=== PATIENT | female | born 1960 | race Caucasian/White ===

== ENCOUNTER 2017-01-29 19:51 | Emergency (ER) | payer OTHER ==
[~2017-01-29] VITALS: Ht 160 cm; Wt 78.7 kg
[~2017-01-29 19:51] MED LIST: BACTRIM,SEPT1 TABLET PO; CIPRO500 MG PO; DOCUSATE SODIU100 MG PO; FLAGYL500 MG PO; GABAPENTIN300 MG PO; HYDROCHLOROTHIA25 MG PO; LISINOPRIL-HCT1 EACH PO; MOTRIN600 MG PO; PHENERGAN25 MG PR; PRILOSEC20 MG PO; RANITIDINE HCL150 MG PO; SENNA PLUS TAB1 EACH PO; ULTRACET1 TABLET PO; VITAMIN D35000 UNIT PO; WELLBUTRIN XL300 MG PO; ZESTRIL,PRINIVI10 MG PO; ZOFRAN ODT4 MG PO
[2017-01-29 20:27] LABS: BASOPHIL COUNT 0.1 K/uL (0-0.1); EOSINOPHIL (%) 0.3 % (0-5); EOSINOPHIL COUNT 0.1 K/uL (0-0.3); HEMATOCRIT 48.5 % (36.0-46.0); IMMATURE GRANULOCYTE (%) 0.7 % (0.0-0.7); IMMATURE GRANULOCYTE COUNT 0.2 K/uL; INSTRUMENT ABS NEUTROPHIL CT 12.5 K/uL; LYMPHOCYTE COUNT 6.1 K/uL (1.0-2.8); MCH 28.7 PG (29.0-34.0); MCHC 32.6 G/DL (30.0-36.0); MCV 88.2 FL (83-99); MEAN PLAT.VOLUME 8.8 uM^3 (9.5-12.4); MONOCYTE (%) 7.6 % (3-12); MONOCYTE COUNT 1.6 K/uL (0-0.8); NEUTROPHIL (%) 61.4 % (45-76); NEUTROPHIL COUNT 12.5 K/uL (1.8-6.4); PLATELET COUNT 323 K/uL (156-360); RBC DIS.WIDTH-CV 12.9 % (11.8-14.6); RBC DIS.WIDTH-SD 41.9 % (39-53); WHITE BLOOD COUNT 20.5 K/uL (4.1-10.2)
[2017-01-29 20:47] LABS: CHLORIDE 103 mEq/L (99-109); POTASSIUM 4.1 mEq/L (3.7-5.4); SODIUM 142 mEq/L (136-147)
[2017-01-29 20:48] LABS: GLUCOSE 79 mg/dL (70-99); TROP-I INTERPRETATION NEGATIVE; TROPONIN-I < 0.01 ng/mL (0.0-0.30)
[2017-01-29 20:50] LABS: ANION GAP 10 MEQ/L (2-14)
[2017-01-29 20:52] LABS: GFR ESTIMATE (CALCULATED) > 59 mL/min/
[2017-01-29 20:53] LABS: UREA NITROGEN (BUN) 30 mg/dL (9-23)
[2017-01-29] MEDS ORDERED: VALIUM5 MG PO (21:49)
[2017-01-29] MEDS ORDERED: PERCOCET 5/31 TABLET PO (21:49)
[2017-01-29 22:32] VITALS: BP 177/104
== END 2017-01-29 22:33 | disposition home or self-care (01) ==
LOC: EME 19:51
PROVIDERS: Physician Assistant
DX: S46.912A Strain of unspecified muscle, fascia and tendon at shoulder and upper arm level, left arm, initial encounter (principal); X58.XXXA Exposure to other specified factors, initial encounter
CPT/HCPCS: 71020; 80048; 84484; 85025; 93005; 99281; 99284; J3010